=== PATIENT | male | born 1955 | race African-American/Black ===

== ENCOUNTER 2020-01-09 00:43 | Inpatient (IN) | payer OTHER ==
[~2020-01-09] VITALS: Ht 185.4 cm; Wt 98.9 kg
[2020-01-09] MEDS ORDERED: ASPirin 81 mg TAB PO ONE (01:30)
[2020-01-09 02:16] LABS: Basophils # (auto) 0.1 10 ^3/uL (0-0.2); Basophils % (auto) 0.9 % (0.0-2.0); Eosinophils # (auto) 0.3 10 ^3/uL (0-0.8); Eosinophils % (auto) 3.9 % (0.0-7.0); Hematocrit 48.2 % (41.0-53.0); Hemoglobin 16.1 g/dL (13.5-17.5); Lymphocytes # (auto) 2.2 10 ^3/uL (0.4-5.4); Lymphocytes % (auto) 27.5 % (10.0-50.0); Mean Corpuscular Hemoglobin 31.8 pg (28.0-32.0); Mean Corpuscular Hgb Conc. 33.4 g/dL (32.0-36.0); Mean Corpuscular Volume 95.5 fL (80.0-100.0); Monocytes # (auto) 0.9 10 ^3/uL (0-1.3); Monocytes % (auto) 11.8 % (0.0-12.0); Neutrophils # (auto) 4.4 10 ^3/uL (1.6-8.6); Neutrophils % (auto) 55.9 % (37.0-80.0); Nucleated Red Blood Cells % 0.1 %; Platelet Count (auto) 242 10^3/uL (140-450); Red Blood Cells 5.05 10^6/uL (4.5-5.90); Red Cell Distribution Width 14.6 % (11.8-14.3); White Blood Cell 7.9 10^3/uL (4.4-10.8)
[2020-01-09 02:38] LABS: Albumin 3.6 g/dL (3.4-5.0); BUN/Creatinine Ratio 17.5; Magnesium 2.1 mg/dL (1.6-2.6); Potassium 4.4 mmol/L (3.5-5.1)
[2020-01-09 02:43] LABS: Bilirubin, Total 0.4 mg/dL (0.2-1.0); Total Protein 7.9 g/dL (6.4-8.2)
[2020-01-09 03:05] LABS: INR 1.08 (0.9-1.15); Partial Thromboplastin Time 31.8 sec (23.0-31.2)
[2020-01-09] MEDS ORDERED: LORazepam 2MG/ML-1ML VIAL IV ONE ×2 (05:00→12:45)
[2020-01-09] MEDS ORDERED: MORPHINE SULF INJ 2 MG/ML SYRINGE 1ML IV PRN (06:15)
[2020-01-09] MEDS ORDERED: ONDANSETRON HCL 4 MG/2 ML VIAL IV PRN (06:15)
[2020-01-09] MEDS ORDERED: NITROGLYCERIN 0.4 MG SL TAB SL PRN (06:15)
[2020-01-09] MEDS ORDERED: ALBUTEROL SULF 2.5 MG/0.5ML(0.5%) NEB SOLN NEB PRN ×2 (06:15→09:15)
[2020-01-09] MEDS ORDERED: TEMAZEPAM 15 MG CAP PO PRN (06:15)
[2020-01-09] MEDS ORDERED: ACETAMINOPHEN 325 MG TAB PO PRN (06:15)
[2020-01-09] MEDS ORDERED: levoFLOXacin 500MG 100 ML IV SCH (06:25)
[2020-01-09 07:20] VITALS: BP 113/80
--- NOTE | 2020-01-09 07:30 | NUR ---
Administered PRN medneb tx due to pt c/o SOB. HR 80, RR 20, SPO2 95% on room air. Breath sounds clear/dim t/o. Pt tolerated tx well, no adverse reactions noted. Advised pt to call for RT again if needed. Pt currently in ER, awaiting bed assignment. No s/s of distress.
--- NOTE | 2020-01-09 07:46 | NUR ---
Report Received report from WIRED MUSIC OPERATORKENZIE Anton.
[2020-01-09] MEDS ORDERED: APIX5TAB PO ×2 (07:56→09:13)
[2020-01-09] MEDS ORDERED: ATOR10TA PO (07:56)
[2020-01-09] MEDS ORDERED: ENAL2.5T7 PO (07:56)
[2020-01-09] MEDS ORDERED: SACU1TAB PO ×2 (07:56→09:13)
[2020-01-09] MEDS ORDERED: SPIR25TA8 PO ×2 (07:56→10:57)
[2020-01-09] MEDS ORDERED: FURO40TA4 PO ×2 (07:56→10:57)
[2020-01-09] MEDS ORDERED: CARV25TA PO ×2 (07:56→09:13)
[2020-01-09] MEDS ORDERED: DIGO0.12 PO ×2 (07:56→09:13)
[2020-01-09] MEDS ORDERED: AMLO5TAB15 PO (07:56)
[2020-01-09 08:00] VITALS: BP 119/62
--- NOTE | 2020-01-09 08:05 | NUR ---
Patient Arrived to unit No signs of distress at this time. Respirations even and unlabored. Safety precautions in place, will continue to monitor.
[2020-01-09 08:54] VITALS: BP 119/62
--- NOTE | 2020-01-09 09:00 | NUR ---
SOB Patient complaint of shortness of breath at this time, some wheezing noted. Patient placed on 2L nasal cannula and sat up at high fowlers. VS as follows: RR 24, HR 82, SpO2 98% (on 2L), BP 97/61.
--- NOTE | 2020-01-09 09:09 | NUR ---
MD Called Dr. Lombardo returned call. MD aware of patient's shortness of breath and current interventions. New orders received.
--- NOTE | 2020-01-09 09:13 | NUR ---
Patient Reassessed. Patient repositioned self, currently laying on left side on 2L nasal cannula. Per patient, shortness of breath has decreased. Respirations are even and unlabored. RR 22, minimal wheezing noted at this time. Will continue to monitor.
[2020-01-09] MEDS ORDERED: NICOTINE 14 MG/24HR TOPICAL PATCH TD ONE (09:15)
[2020-01-09] MEDS ORDERED: IPRATROPIUM BROM 0.5 MG/2.5ML INH SOL NEB PRN (09:15)
[2020-01-09] MEDS ORDERED: APIXABAN 5 MG TAB PO SCH (10:00)
[2020-01-09] MEDS ORDERED: ASPirin 81 mg TAB PO SCH (10:00)
[2020-01-09] MEDS ORDERED: FUROSEMIDE 40 MG TAB PO SCH (10:00)
[2020-01-09] MEDS ORDERED: CARVEDILOL 3.125 MG TAB PO SCH (10:00)
[2020-01-09] MEDS ORDERED: DIGOXIN 0.125 MG TAB PO SCH (10:00)
[2020-01-09] MEDS ORDERED: FAMOTIDINE 20 MG TAB PO SCH (10:00)
--- NOTE | 2020-01-09 10:30 | NUR ---
ABG drawn on room air as ordered. Results to follow in EMR.
--- NOTE | 2020-01-09 10:30 | NUR ---
COVID Swab Obtained TAMI swab. Walked down to lab by Tsering.
--- NOTE | 2020-01-09 10:56 | NUR ---
Tele Box Tele box returned to ICU, pressure testing technician aware, will send new box.
[2020-01-09] MEDS ORDERED: LORA0.5T20 PO (10:57)
[2020-01-09] MEDS ORDERED: MULT-1018 PO (10:58)
[2020-01-09] MEDS ORDERED: CHOL20007 PO (10:58)
--- NOTE | 2020-01-09 11:30 | NUR ---
Report Endorsed care to KENZIE Do.
--- NOTE | 2020-01-09 11:36 | NUR ---
Transfer Patient transferred to [facility] via wheelchair by Willie. No signs of distress at this time. Respirations even and unlabored. Tele box 19.
--- NOTE | 2020-01-09 11:45 | NUR ---
AMA Note OLLIE LARKIN states they want to leave the hospital Against Medical Advice (AMA). Patient just transferred from room 293B and as soon as he came in to covid unit patient started stating he wants to leave. Patient encouraged to stay for further treatment/stabilization as symptoms can worsen or recur causing and not limited to . MD Brennan notified of patient's wishes. Patient advised of the risks of leaving AMA. Patient verbalized understanding and states he wants to leave. Patient encouraged to return to the ER if symptoms do not improve or worsen. Unable to assess patient or check VS as he refused and states "I just want to leave" no acute distress or sob noted on departure. Patient taken down to parking lot by transfer station attendant as he states he drove here and his car is down there. international sales manager aware.
[2020-01-09] MEDS ORDERED: LORazepam 2MG/ML-1ML VIAL IM ONE (12:15)
[2020-01-09] MEDS ORDERED: LORazepam 2MG/ML-1ML VIAL IV PRN (12:15)
--- NOTE | 2020-01-09 12:32 | NUR ---
Approval to return to room, after patient signed out AMA, per Gerardo Sears. Patient brought to room via wheelchair by Meghan Serna LICENSED FUNERAL DIRECTOR and new IV started to right hand 20 G. Tele monitor placed at this time tele #19 and tele rhythm is SR with BBB HR 85. Per CATINA Serna new orders received for Ativan 1mg IV once now and PRN order as well. Will medicate as ordered and will continue care
[2020-01-09] MEDS ORDERED: ALBUTEROL SULF HFA 90MCG INH 200DOSE IN SCH (14:00)
--- NOTE | 2020-01-09 14:49 | NUR ---
PT C/O ANXIETY. PER RN'S NOTES, PT IS NOT DUE FOR ANIXTY MEDICATION. WILL NOTIFY RN WHEN SHE RETURNS
--- NOTE | 2020-01-09 15:15 | NUR ---
AMA Note OLLIE LARKIN states they want to leave the hospital Against Medical Advice (AMA). Patient encouraged to stay for further treatment/stabilization. MD Brennan notified of patient's wishes. Patient advised of the risks of leaving AMA. Patient verbalized understanding. IV d/c'd with catheter intact and pressure dressing applied.Tele monitor returned to ICU and Bridgette notified. Patient encouraged to return to the ER if symptoms do not improve or worsen.
[2020-01-09] MEDS ORDERED: ATORVASTATIN 20 MG TAB PO SCH (22:00)
[2020-01-10] MEDS ORDERED: NICOTINE 14 MG/24HR TOPICAL PATCH TD SCH (10:00)
== END 2020-01-09 15:15 | disposition left against medical advice (07) | DRG 196 ==
LOC: ER 00:43 → TELE 00:44 → TELE-WESTW 08:08 → TELE-E-ADS 11:42
PROVIDERS: ADMIT Nurse Practitioner; ATTEND Internal Medicine Pulmonary Disease
DX: J84.9 Interstitial pulmonary disease, unspecified (principal); J96.01 Acute respiratory failure with hypoxia; I42.2 Other hypertrophic cardiomyopathy; I50.22 Chronic systolic (congestive) heart failure; I20.8 Other forms of angina pectoris; I11.0 Hypertensive heart disease with heart failure; Z20.828 Contact with and (suspected) exposure to other viral communicable diseases; F17.210 Nicotine dependence, cigarettes, uncomplicated; Z53.29 Procedure and treatment not carried out because of patient's decision for other reasons; E78.5 Hyperlipidemia, unspecified; Z95.810 Presence of automatic (implantable) cardiac defibrillator; Z71.6 Tobacco abuse counseling; Z79.899 Other long term (current) drug therapy
CPT/HCPCS: 36415; 36600; 71045; 80053; 80162; 82805; 83735; 83880; 84484; 85025; 85379; 85610; 85730; 87426; 93306; 94640; G0378; J1956

== ENCOUNTER 2020-01-16 15:57 | Inpatient (IN) | payer OTHER ==
[~2020-01-16] VITALS: Ht 185.4 cm; Wt 100.4 kg
[~2020-01-16 15:57] MED LIST: AMLO5TAB15 PO; APIX5TAB PO; ATOR10TA PO; CARV25TA PO; CHOL20007 PO; DIGO0.12 PO; FURO40TA4 PO; LORA0.5T20 PO; MULT-1018 PO; SACU1TAB PO; SPIR25TA8 PO
[2020-01-16] MEDS ORDERED: FUROSEMIDE 20 MG/2 ML VIAL IV ONE (17:15)
[2020-01-16 17:25] LABS: Basophils # (auto) 0.1 10 ^3/uL (0-0.2); Basophils % (auto) 1.1 % (0.0-2.0); Eosinophils # (auto) 0.2 10 ^3/uL (0-0.8); Eosinophils % (auto) 3.2 % (0.0-7.0); Hematocrit 47.6 % (41.0-53.0); Hemoglobin 15.5 g/dL (13.5-17.5); Lymphocytes # (auto) 1.9 10 ^3/uL (0.4-5.4); Lymphocytes % (auto) 29.6 % (10.0-50.0); Mean Corpuscular Hemoglobin 31.2 pg (28.0-32.0); Mean Corpuscular Hgb Conc. 32.7 g/dL (32.0-36.0); Mean Corpuscular Volume 95.4 fL (80.0-100.0); Monocytes # (auto) 0.7 10 ^3/uL (0-1.3); Monocytes % (auto) 10.1 % (0.0-12.0); Neutrophils # (auto) 3.7 10 ^3/uL (1.6-8.6); Nucleated Red Blood Cells % 0.1 %; Platelet Count (auto) 214 10^3/uL (140-450); Red Blood Cells 4.98 10^6/uL (4.5-5.90); Red Cell Distribution Width 14.3 % (11.8-14.3); White Blood Cell 6.6 10^3/uL (4.4-10.8)
[2020-01-16 17:40] LABS: Albumin 3.3 g/dL (3.4-5.0); Anion Gap 5 (5-15); Blood Urea Nitrogen 19 mg/dL (7-18); Calcium 8.6 mg/dL (8.5-10.1); Carbon Dioxide 26 mmol/L (21-32); Chloride 107 mmol/L (98-107); Glucose 114 mg/dL (74-106); Potassium 4.1 mmol/L (3.5-5.1); Sodium 138 mmol/L (136-145)
[2020-01-16 17:42] LABS: Alanine Aminotransferase 16 U/L (16-61); Aspartate Aminotransferase 13 U/L (15-37); BUN/Creatinine Ratio 14.7; GFR African American 72 mL/min; GFR Non-African American 60 mL/min
[2020-01-16 17:43] LABS: INR 1.09 (0.9-1.15)
[2020-01-16 17:46] LABS: Alkaline Phosphatase 90 U/L (45-117); Bilirubin, Total 0.5 mg/dL (0.2-1.0); Total Protein 7.3 g/dL (6.4-8.2)
[2020-01-16] MEDS ORDERED: MORPHINE SULF INJ 2 MG/ML SYRINGE 1ML IV PRN (18:45)
[2020-01-16] MEDS ORDERED: NITROGLYCERIN 0.4 MG SL TAB SL PRN (18:45)
[2020-01-16] MEDS ORDERED: ACETAMINOPHEN 500 MG TAB PO PRN (19:00)
[2020-01-16] MEDS ORDERED: ONDANSETRON HCL 4 MG/2 ML VIAL IV PRN (19:00)
[2020-01-16] MEDS ORDERED: ALBUTEROL SULF 2.5 MG/0.5ML(0.5%) NEB SOLN NEB PRN ×2 (19:30)
[2020-01-16 19:46] VITALS: BP 148/95
[2020-01-16] MEDS: APIXABAN 5 MG TAB PO SCH (21:53)
[2020-01-16] MEDS: ATORVASTATIN 20 MG TAB PO SCH (21:53)
[2020-01-16] MEDS: SACUBITRIL-VALSARTAN 24mg/26mg TAB PO SCH (21:54)
[2020-01-16] MEDS: AMIODARONE HCL 200 MG TAB PO SCH (21:54)
[2020-01-16] MEDS ORDERED: CARVEDILOL 12.5 MG TAB PO SCH (22:00)
[2020-01-16] MEDS ORDERED: LORazepam 0.5 MG TAB PO SCH (22:00)
[2020-01-16 23:06] VITALS: BP 105/74
--- NOTE | 2020-01-16 23:06 | NUR ---
Telemetry admit from ER OLLIE LARKIN admitted to Telemetry unit. Patient alert and oriented x4. Patient in no apparent s/s of distress/SOB/pain. Patient oriented to primary RN, unit, room, bed, and unit policies regarding patient care and visiting hours. Patient now on continuous telemetry monitoring, tele box #55 with ventricular paced rhythm at 65 bpm. Fall and safety precautions in place. Patient educated on current plan of care and hospital environment. All questions and concerns addressed, patient verbalized understanding and in agreement. Call light within reach and able to use. Will continue to monitor q1h and prn.
--- NOTE | 2020-01-16 23:30 | NUR ---
MRSA SWAB PATIENT EDUCATED ON INDICATION FOR PROCEDURE, PT VERBALIZED UNDERSTANDING AND IN AGREEMENT. MRSA SWAB OBTAINED AT THIS TIME WITH PROPER TECHNIQUE. PATIENT TOLERATED WELL. MRSA SWAB SENT TO LAB. LAB CALLED AND TRIMMER BUFFING WHEEL CONFIRMED THAT SAMPLE WAS RECEIVED. WILL CONTINUE TO MONITOR.
[2020-01-17] MEDS ORDERED: ALBUTEROL SULF 2.5 MG/0.5ML(0.5%) NEB SOLN NEB SCH
[2020-01-17] MEDS: IPRATROPIUM BROM 0.5 MG/2.5ML INH SOL NEB SCH ×4 (00:05→19:32)
[2020-01-17] MEDS: ALBUTEROL SULF 2.5 MG/0.5ML(0.5%) NEB SOLN NEB SCH ×5 (00:07→19:32)
--- NOTE | 2020-01-17 00:25 | NUR ---
RUN OF PVC'S RECEIVED CALL FROM [employer] STATING THAT PATIENT HAS SUSTAINED PVC'S FOR APPROXIMATELY 2 MINUTES AT THIS TIME. UPON ENTERING ROOM, PATIENT IN NO S/S OF DISTRESS AND DENIES ABNORMAL SYMPTOMS. CARDIO CONSULT IN PLACE. WILL NOTIFY DAY SHIFT RN TO REPORT TO RAILCAR SWITCHMAN WHEN MD ROUNDS. WILL CONTINUE TO MONITOR.
--- NOTE | 2020-01-17 03:57 | NUR ---
SOB / EKG EKG OBTAINED AT THIS TIME (SEE IN CHART). PATIENT STATES HE IS SHORT OF BREATH. RT PAGED FOR PRN BREATHING TREATMENT. PATIENT O2 SAT ON ROOM AIR IS 95% AND PATIENT'S AIRWAY IS PATENT, RESPIRATIONS 20 BPM. PATIENT DENIES CHEST PAIN AND ADDITIONAL ABNORMAL SYMPTOMS. WILL CONTINUE TO MONITOR.
--- NOTE | 2020-01-17 04:46 | NUR ---
ON-CALL HOSP PAGED FOR C/O SOB/ANXIETY AFTER PATIENT RECEIVED HAS RECEIVED BREATHING TREATMENT FOR SOB, PATIENT CONTINUES TO STATE THAT HE CANNOT BREATHE. PATIENT'S AIRWAY IS PATENT AND OXYGEN SATURATION IS >92% ON ROOM AIR. UPON FURTHER ASSESSMENT PATIENT STATES HE NEEDS SOMETHING TO "KNOCK [HIM] OUT" AND "HELP CALM [HIM] DOWN." PATIENT STATES HE FEELS VERY ANXIOUS RELATED TO HIS CONDITION. ATTEMPTED TO HELP PATIENT CALM DOWN, HOWEVER, ANXIETY PERSISTS. PATIENT STATES HE WOULD LIKE MEDICATION FOR HIS ANXIETY. ON-CALL HOSPITALIST PAGED AT THIS TIME. AWAITING CALL BACK. WILL CONTINUE TO MONITOR.
[2020-01-17 05:00] VITALS: BP 98/67
--- NOTE | 2020-01-17 05:15 | NUR ---
MED NON-ADMIN ALDACTONE 25MG PO HELD (SEE EMAR) DUE TO PATIENT'S DECREASED BLOOD PRESSURE 98/67 MMHG IN HIGH-RODRIGUES'S POSITION. WILL CONTINUE TO MONITOR.
--- NOTE | 2020-01-17 05:50 | NUR ---
ON-CALL HOSP NEW ORDERS UPDATED MD AT THIS TIME ON PATIENT CONDITION AND PATIENT COMPLAINT RELATED TO CONDITION. NEW ORDERS RECEIVED, READ BACK AND VERIFIED (SEE NEW ORDERS). WILL CARRY OUT. WILL CONTINUE TO MONITOR.
[2020-01-17] MEDS ORDERED: SPIRONOLACTONE 25 MG TAB PO SCH (06:00)
[2020-01-17] MEDS: LORazepam 0.5 MG TAB PO PRN ×3 (06:05→18:16)
[2020-01-17 06:54] LABS: Potassium 4.2 mmol/L (3.5-5.1)
[2020-01-17 07:08] LABS: Albumin 3.6 g/dL (3.4-5.0); BUN/Creatinine Ratio 16.3; Bilirubin, Total 0.5 mg/dL (0.2-1.0); Calcium 8.6 mg/dL (8.5-10.1); Total Protein 7.7 g/dL (6.4-8.2)
[2020-01-17 08:00] VITALS: BP 120/74
--- NOTE | 2020-01-17 08:43 | NUR ---
AMA to Smoke STRANGE,OLLIE states he wants to leave the floor Against Medical Advice (AMA) to go outside and smoke. Patient encouraged to stay on floor and not smoke. Patient advised of the risks and benefits of leaving AMA. Patient verbalized understanding and signed required AMA form.
[2020-01-17 09:00] VITALS: BP 120/74
--- NOTE | 2020-01-17 09:50 | NUR ---
Anne Serna bedside with patient discussing plan of care
[2020-01-17] MEDS: FUROSEMIDE 40 MG/4 ML VIAL IV SCH (10:10)
[2020-01-17] MEDS: AMIODARONE HCL 200 MG TAB PO SCH ×2 (10:11→21:17)
[2020-01-17] MEDS: SPIRONOLACTONE 25 MG TAB PO SCH (10:11)
[2020-01-17] MEDS: ASPirin 81 mg TAB PO SCH (10:11)
[2020-01-17] MEDS: APIXABAN 5 MG TAB PO SCH ×2 (10:12→21:16)
[2020-01-17] MEDS: CARVEDILOL 3.125 MG TAB PO SCH ×2 (10:12→21:18)
[2020-01-17] MEDS: MULTIPLE VITAMIN TAB PO SCH (10:13)
[2020-01-17] MEDS: DIGOXIN 0.125 MG TAB PO SCH (10:13)
[2020-01-17] MEDS: NICOTINE 14 MG/24HR TOPICAL PATCH TD SCH (10:48)
[2020-01-17] MEDS: SACUBITRIL-VALSARTAN 24mg/26mg TAB PO SCH ×2 (12:08→21:18)
[2020-01-17 13:00] VITALS: BP 122/76
--- NOTE | 2020-01-17 14:00 | NUR ---
Anxiety Informed Dr Spann of patients increased anxiety. Patient has received anxiety medication and prn medication is not due. Order received from Dr Spann for 1 time additional dose. Order carried out as received.
[2020-01-17] MEDS ORDERED: LORazepam 0.5 MG TAB PO ONE (14:15)
--- NOTE | 2020-01-17 16:20 | NUR ---
Dr Spann bedside with patient discussing plan of care.
[2020-01-17 17:00] VITALS: BP 124/85
--- NOTE | 2020-01-17 19:15 | NUR ---
Opening Shift Note Assumed care of patient, awake and alert. No S/S of distress/SOB or pain. Fall and safety precautions in place. Call light within reach and able to use. Instructed on POC and to call for assist PRN, patient verbalized understanding and in agreement. Will continue to monitor for changes Q1hr and PRN.
--- NOTE | 2020-01-17 19:20 | NUR ---
PT REQUESTS TO SMOKE PATIENT HAS SIGNED AMA TO SMOKE. DESPITE STRONG RECOMMENDATION AND EDUCATION GIVEN TO PATIENT ON ADVERSE EFFECTS OF LEAVING AMA TO SMOKE, PATIENT VERBALIZED UNDERSTANDING OF CONSEQUENCES AND CONTINUES TO LEAVE AT THIS TIME. NICOTINE PATCH IS NOT FOUND ON PATIENT AT THIS TIME, PATIENT STATES HE THINKS IT MIGHT HAVE FALLEN OFF. PATIENT SEARCHED AND NO PATCH FOUND ON PATIENT. PATIENT LEAVES UNIT AT THIS TIME. WILL CONTINUE TO MONITOR.
--- NOTE | 2020-01-17 19:28 | NUR ---
AT BEDSIDE FOR MED MARGARETTE TX. PT NOT IN ROOM, WILL RETURN AT NEXT SCHEDULED TREATMENT TIME.
--- NOTE | 2020-01-17 19:35 | NUR ---
RETURN TO UNIT PATIENT RETURNS TO UNIT AT THIS TIME WITH NO S/S OF DISTRESS. WILL CONTINUE TO MONITOR.
--- NOTE | 2020-01-17 20:25 | NUR ---
PT REQUESTS TO SMOKE PATIENT HAS SIGNED AMA TO SMOKE. EDUCATION GIVEN TO PATIENT ON ADVERSE EFFECTS OF LEAVING, PATIENT VERBALIZED UNDERSTANDING AND CONTINUES TO WISH TO LEAVE AT THIS TIME. PATIENT LEAVES UNIT AT THIS TIME. WILL CONTINUE TO MONITOR.
--- NOTE | 2020-01-17 20:45 | NUR ---
RETURN TO UNIT PATIENT RETURNS TO UNIT AT THIS TIME WITH NO S/S OF DISTRESS. WILL CONTINUE TO MONITOR.
[2020-01-17] MEDS: ATORVASTATIN 20 MG TAB PO SCH (21:16)
[2020-01-17 22:00] VITALS: BP 121/78
[2020-01-17] MEDS ORDERED: TEMAZEPAM 15 MG CAP PO SCH (22:00)
[2020-01-18] MEDS: IPRATROPIUM BROM 0.5 MG/2.5ML INH SOL NEB SCH ×3 (00:44→13:06)
[2020-01-18] MEDS: ALBUTEROL SULF 2.5 MG/0.5ML(0.5%) NEB SOLN NEB SCH ×3 (00:44→13:06)
[2020-01-18] MEDS: LORazepam 0.5 MG TAB PO PRN (03:51)
[2020-01-18 05:00] VITALS: BP 107/73
[2020-01-18 07:49] LABS: Basophils # (auto) 0.1 10 ^3/uL (0-0.2); Basophils % (auto) 0.8 % (0.0-2.0); Eosinophils # (auto) 0.2 10 ^3/uL (0-0.8); Eosinophils % (auto) 2.1 % (0.0-7.0); Hematocrit 46.8 % (41.0-53.0); Hemoglobin 15.6 g/dL (13.5-17.5); Lymphocytes % (auto) 22.9 % (10.0-50.0); Mean Corpuscular Hemoglobin 32.1 pg (28.0-32.0); Mean Corpuscular Hgb Conc. 33.4 g/dL (32.0-36.0); Monocytes # (auto) 0.6 10 ^3/uL (0-1.3); Monocytes % (auto) 7.3 % (0.0-12.0); Neutrophils # (auto) 5.8 10 ^3/uL (1.6-8.6); Neutrophils % (auto) 66.9 % (37.0-80.0); Nucleated Red Blood Cells % 0.1 %; Platelet Count (auto) 222 10^3/uL (140-450); Red Blood Cells 4.88 10^6/uL (4.5-5.90); Red Cell Distribution Width 14.2 % (11.8-14.3); White Blood Cell 8.6 10^3/uL (4.4-10.8)
[2020-01-18 07:57] LABS: Anion Gap 4 (5-15); Blood Urea Nitrogen 23 mg/dL (7-18); Calcium 8.7 mg/dL (8.5-10.1); Carbon Dioxide 27 mmol/L (21-32); Chloride 106 mmol/L (98-107); Glucose 119 mg/dL (74-106); Potassium 4.4 mmol/L (3.5-5.1); Sodium 137 mmol/L (136-145)
[2020-01-18 07:58] LABS: BUN/Creatinine Ratio 17.2; GFR African American 69 mL/min; GFR Non-African American 57 mL/min
[2020-01-18 08:00] VITALS: BP 115/80
[2020-01-18 09:00] VITALS: BP 115/80
[2020-01-18] MEDS ORDERED: FLUoxetine HCL 10 MG CAP PO SCH (10:00)
[2020-01-18] MEDS: NICOTINE 14 MG/24HR TOPICAL PATCH TD SCH (10:00)
[2020-01-18] MEDS: FUROSEMIDE 40 MG/4 ML VIAL IV SCH (10:06)
[2020-01-18] MEDS: ASPirin 81 mg TAB PO SCH (10:06)
[2020-01-18] MEDS: AMIODARONE HCL 200 MG TAB PO SCH (10:07)
[2020-01-18] MEDS: SPIRONOLACTONE 25 MG TAB PO SCH (10:07)
[2020-01-18] MEDS: CARVEDILOL 3.125 MG TAB PO SCH (10:07)
[2020-01-18] MEDS: APIXABAN 5 MG TAB PO SCH (10:08)
[2020-01-18] MEDS: MULTIPLE VITAMIN TAB PO SCH (10:08)
[2020-01-18] MEDS: DIGOXIN 0.125 MG TAB PO SCH (10:08)
--- NOTE | 2020-01-18 10:40 | NUR ---
Dr Spann bedside with patient discussing plan of care.
[2020-01-18 11:04] VITALS: BP 115/80
[2020-01-18] MEDS: SACUBITRIL-VALSARTAN 24mg/26mg TAB PO SCH (12:01)
[2020-01-18 13:00] VITALS: BP 120/76
--- NOTE | 2020-01-18 13:00 | NUR ---
Dr Hand bedside with patient.
--- NOTE | 2020-01-18 13:30 | NUR ---
Discharge instructions given as ordered. Encouraged to follow up with PCP, who is now Dr Perdomo, on SundayJan 19 @ 2:00PM. Patient also encouraged to follow up with Dr Hand, due to weekend, office is closed and patient will call to schedule appointment tomorrow. Patient discharged with script for new prescriptions and new doses of medications was reviewed with patient. All questions and concerns addressed. Patient verbalized understanding. Medication reconciliation form completed and copy given to patient. No home medications held in Pharmacy, and no needed vaccines given, patient declined. IV removed with catheter intact and pressure dressing applied. Telemetry unit returned to ICU. Patient ambulated self to vehicle with all personal belongings. No distress noted at time of departure.
== END 2020-01-18 13:30 | disposition home or self-care (01) | DRG 291 ==
LOC: ER 15:57 → TELE 15:58 → TELE-WESTW 23:13
PROVIDERS: ADMIT Internal Medicine; ATTEND Internal Medicine
DX: I13.0 Hypertensive heart and chronic kidney disease with heart failure and stage 1 through stage 4 chronic kidney disease, or unspecified chronic kidney disease (principal); I50.43 Acute on chronic combined systolic (congestive) and diastolic (congestive) heart failure; N17.0 Acute kidney failure with tubular necrosis; E11.22 Type 2 diabetes mellitus with diabetic chronic kidney disease; I42.0 Dilated cardiomyopathy; I42.2 Other hypertrophic cardiomyopathy; E78.5 Hyperlipidemia, unspecified; I95.1 Orthostatic hypotension; I25.10 Atherosclerotic heart disease of native coronary artery without angina pectoris; R06.03 Acute respiratory distress; F17.210 Nicotine dependence, cigarettes, uncomplicated; F41.9 Anxiety disorder, unspecified; I25.5 Ischemic cardiomyopathy; I49.3 Ventricular premature depolarization; N18.9 Chronic kidney disease, unspecified; Z79.899 Other long term (current) drug therapy; Z82.49 Family history of ischemic heart disease and other diseases of the circulatory system; Z91.11 Patient's noncompliance with dietary regimen; Z83.3 Family history of diabetes mellitus; Z95.810 Presence of automatic (implantable) cardiac defibrillator
CPT/HCPCS: 36415; 71045; 80048; 80053; 82533; 83880; 84443; 84484; 85025; 85610; 85730; 87081; 93005; 94640; 99291; G0378

== ENCOUNTER 2020-01-26 09:58 | Emergency (ER) | payer OTHER ==
[~2020-01-26] VITALS: Ht 185.4 cm; Wt 101.2 kg
[2020-01-26] MEDS ORDERED: FUROSEMIDE 40 MG/4 ML VIAL IV ONE (10:45)
[2020-01-26 11:01] LABS: Basophils # (auto) 0.1 10 ^3/uL (0-0.2); Basophils % (auto) 1.3 % (0.0-2.0); Eosinophils # (auto) 0.2 10 ^3/uL (0-0.8); Eosinophils % (auto) 2.5 % (0.0-7.0); Hematocrit 51.3 % (41.0-53.0); Hemoglobin 16.5 g/dL (13.5-17.5); Lymphocytes % (auto) 27.1 % (10.0-50.0); Mean Corpuscular Hemoglobin 30.9 pg (28.0-32.0); Mean Corpuscular Hgb Conc. 32.2 g/dL (32.0-36.0); Monocytes # (auto) 0.6 10 ^3/uL (0-1.3); Monocytes % (auto) 8.6 % (0.0-12.0); Neutrophils # (auto) 4.4 10 ^3/uL (1.6-8.6); Neutrophils % (auto) 60.5 % (37.0-80.0); Nucleated Red Blood Cells % 0.2 %; Platelet Count (auto) 248 10^3/uL (140-450); Red Blood Cells 5.35 10^6/uL (4.5-5.90); Red Cell Distribution Width 15.1 % (11.8-14.3); White Blood Cell 7.3 10^3/uL (4.4-10.8)
[2020-01-26 11:46] LABS: Albumin 3.7 g/dL (3.4-5.0); Calcium 8.8 mg/dL (8.5-10.1); Potassium 4.3 mmol/L (3.5-5.1)
[2020-01-26 11:52] LABS: BUN/Creatinine Ratio 11.1; Bilirubin, Total 0.4 mg/dL (0.2-1.0)
[2020-01-26 12:00] VITALS: BP 110/77
== END 2020-01-26 12:54 | disposition home or self-care (01) ==
LOC: ER 09:58
DX: I11.0 Hypertensive heart disease with heart failure (principal); I50.9 Heart failure, unspecified; E78.5 Hyperlipidemia, unspecified; F17.210 Nicotine dependence, cigarettes, uncomplicated
CPT/HCPCS: 36415; 71046; 80053; 83880; 84484; 85025; 96374; 99285; J1940

== ENCOUNTER → 2020-02-01 | Emergency (ER) | payer OTHER ==
[~2020-02-01] VITALS: Ht 182.9 cm; Wt 98.9 kg
[~2020-02-01] MED LIST changes: +FUROSEMIDE 40 MG/4 ML VIAL IV ONE; +SPIRONOLACTONE 25 MG TAB PO ONE
[2020-02-01 10:20] LABS: Basophils # (auto) 0.1 10 ^3/uL (0-0.2); Eosinophils # (auto) 0.1 10 ^3/uL (0-0.8); Eosinophils % (auto) 1.8 % (0.0-7.0); Hematocrit 46.7 % (41.0-53.0); Hemoglobin 15.2 g/dL (13.5-17.5); Lymphocytes # (auto) 1.3 10 ^3/uL (0.4-5.4); Lymphocytes % (auto) 15.3 % (10.0-50.0); Mean Corpuscular Hemoglobin 31.3 pg (28.0-32.0); Mean Corpuscular Hgb Conc. 32.5 g/dL (32.0-36.0); Mean Corpuscular Volume 96.3 fL (80.0-100.0); Monocytes # (auto) 0.7 10 ^3/uL (0-1.3); Monocytes % (auto) 8.6 % (0.0-12.0); Neutrophils % (auto) 73.3 % (37.0-80.0); Nucleated Red Blood Cells % 0.2 %; Platelet Count (auto) 206 10^3/uL (140-450); Red Blood Cells 4.85 10^6/uL (4.5-5.90); Red Cell Distribution Width 14.8 % (11.8-14.3); White Blood Cell 8.2 10^3/uL (4.4-10.8)
[2020-02-01 10:34] LABS: Urine Bacteria NONE SEEN /hpf (None Seen); Urine Blood TRACE /uL (Negative); Urine Specific Gravity 1.011 (1.001-1.035); Urine WBC 1 /hpf (0 - 3)
[2020-02-01 10:38] LABS: Albumin 3.4 g/dL (3.4-5.0); Calcium 8.4 mg/dL (8.5-10.1); Magnesium 2.2 mg/dL (1.6-2.6); Potassium 3.5 mmol/L (3.5-5.1)
[2020-02-01 10:44] LABS: BUN/Creatinine Ratio 11.6; Bilirubin, Total 0.4 mg/dL (0.2-1.0); Total Protein 7.4 g/dL (6.4-8.2)
[2020-02-01 12:42] VITALS: BP 122/86
== END | disposition home or self-care (01) ==
LOC: ER 09:47
DX: I11.0 Hypertensive heart disease with heart failure (principal); I50.42 Chronic combined systolic (congestive) and diastolic (congestive) heart failure; I48.20 Chronic atrial fibrillation, unspecified; E78.5 Hyperlipidemia, unspecified; Z95.0 Presence of cardiac pacemaker; F17.210 Nicotine dependence, cigarettes, uncomplicated; Z79.899 Other long term (current) drug therapy
CPT/HCPCS: 36415; 71045; 80053; 81001; 83735; 83880; 84484; 85025; 85379; 93005; 96374; 99285; J1940

== ENCOUNTER 2020-02-04 05:11 | Emergency (ER) | payer OTHER ==
[~2020-02-04] VITALS: Ht 185.4 cm; Wt 99.8 kg
[~2020-02-04 05:11] MED LIST changes: -FUROSEMIDE 40 MG/4 ML VIAL IV ONE; -SPIRONOLACTONE 25 MG TAB PO ONE
[2020-02-04 06:00] VITALS: BP 123/91
[2020-02-04 06:00] LABS: Basophils # (auto) 0 10 ^3/uL (0-0.2); Basophils % (auto) 0.7 % (0.0-2.0); Eosinophils # (auto) 0.2 10 ^3/uL (0-0.8); Hematocrit 46.6 % (41.0-53.0); Hemoglobin 15.3 g/dL (13.5-17.5); Lymphocytes % (auto) 30.8 % (10.0-50.0); Mean Corpuscular Hemoglobin 31.7 pg (28.0-32.0); Mean Corpuscular Hgb Conc. 32.8 g/dL (32.0-36.0); Mean Corpuscular Volume 96.6 fL (80.0-100.0); Monocytes # (auto) 0.6 10 ^3/uL (0-1.3); Monocytes % (auto) 8.8 % (0.0-12.0); Neutrophils # (auto) 3.8 10 ^3/uL (1.6-8.6); Neutrophils % (auto) 56.7 % (37.0-80.0); Nucleated Red Blood Cells % 0.1 %; Platelet Count (auto) 204 10^3/uL (140-450); Red Blood Cells 4.83 10^6/uL (4.5-5.90); Red Cell Distribution Width 14.7 % (11.8-14.3); White Blood Cell 6.7 10^3/uL (4.4-10.8)
[2020-02-04 06:17] LABS: INR 1.03 (0.9-1.15); Partial Thromboplastin Time 28.6 sec (23.0-31.2)
[2020-02-04 06:20] LABS: Potassium 3.4 mmol/L (3.5-5.1)
[2020-02-04 06:35] LABS: Albumin 3.3 g/dL (3.4-5.0); BUN/Creatinine Ratio 15.7; Bilirubin, Total 0.4 mg/dL (0.2-1.0); Calcium 8.9 mg/dL (8.5-10.1); Total Protein 7.5 g/dL (6.4-8.2)
== END 2020-02-04 07:48 | disposition left against medical advice (07) ==
LOC: ER 05:11
DX: R06.02 Shortness of breath (principal); E87.6 Hypokalemia; R79.89 Other specified abnormal findings of blood chemistry; I13.0 Hypertensive heart and chronic kidney disease with heart failure and stage 1 through stage 4 chronic kidney disease, or unspecified chronic kidney disease; N18.9 Chronic kidney disease, unspecified; I50.33 Acute on chronic diastolic (congestive) heart failure; E78.5 Hyperlipidemia, unspecified; F17.210 Nicotine dependence, cigarettes, uncomplicated
CPT/HCPCS: 36415; 71045; 80053; 83880; 84484; 85025; 85610; 85730; 93005